=== PATIENT | female | born 1965 | race Caucasian/White ===

== ENCOUNTER 2016-09-19 14:35 | Inpatient (IN) | payer OTHER ==
[2016-09-19] MEDS ORDERED: ONDANSETRON 4 MG/2 ML VIAL ONE (14:57)
[2016-09-19 15:09] LABS: % IMMATURE GRANULYOCYTES 0.4 % (0.0-1.1); ABSOLUTE IMMATURE GRANULOCYTES 0.05 10^3/uL (0.00-0.10); ADD DIFF? NO; ADD MORPH? NO; ADD SCAN? NO; ATYPICAL LYMPHOCYTE FLAG 10 (0-99); FRAGMENT RBC FLAG 0 (0-99); HEMATOCRIT 43.6 % (38.0-47.0); HEMOGLOBIN 15.1 g/dL (12.6-16.3); LEFT SHIFT FLG 0 (0-99); LIPEMIA HEMOLYSIS FLAG 90 (0-99); MEAN CELL HEMOGLOBIN 33.3 pg (27.9-34.1); MEAN CELL HEMOGLOBIN CONCENTR. 34.6 g/dL (32.4-36.7); MEAN PLATELET VOLUME 9.8 fL (8.7-11.7); PLATELET CLUMPS FLAG 10 (0-99); PLATELET COUNT 248 10^3/uL (150-400); RED BLOOD CELL COUNT 4.54 10^6/uL (4.18-5.33)
[2016-09-19] MEDS ORDERED: NS 1,000 ML IV ONE (15:11)
[2016-09-19] MEDS ORDERED: ONDANSETRON 4 MG/2 ML VIAL IVP ONE (15:11)
[2016-09-19 15:15] LABS: ALANINE AMINOTRANSFERASE 36 IU/L (9-52); ALBUMIN 4.5 g/dL (3.5-5.0); ALKALINE PHOSPHATASE 46 IU/L (38-126); ANION GAP 11 mEq/L (8-16); ASPARTATE AMINOTRANSFERASE 33 IU/L (14-46); BILIRUBIN,TOTAL 1.5 mg/dL (0.1-1.4); BILIRUBIN-CONJUGATED 0.3 mg/dL (0.0-0.5); BILIRUBIN-UNCONJUGATED 1.2 mg/dL (0.0-1.1); CALCIUM 9.2 mg/dL (8.5-10.4); CARBON DIOXIDE 24 mEq/l (22-31); CHLORIDE 103 mEq/L (97-110); CREATININE 0.6 mg/dL (0.6-1.0); GLOMERULAR FILTRATION RATE > 60; GLUCOSE 85 mg/dL (70-100); POTASSIUM 4.2 mEq/L (3.5-5.2); SODIUM 138 mEq/L (134-144); TOTAL PROTEIN 7.7 g/dL (6.3-8.2)
[2016-09-19] MEDS ORDERED: IOPAMIDOL (ISOVUE-300) 100 ML BTL IV ONE (15:27)
[2016-09-19] MEDS ORDERED: ERTAPENEM 1 GM in NS 100 ML IV ONE (16:09)
[2016-09-19] MEDS ORDERED: ONDANSETRON 4 MG/2 ML VIAL IVP PRN (17:23)
--- NOTE | 2016-09-19 17:51 | EDPHY ---
H & P Smoking Status: Never smoked Time Seen by Provider: 09/19/16 14:46 HPI/ROS: CHIEF COMPLAINT: Abdominal pain HISTORY OF PRESENT ILLNESS: 51-year-old female presents to the emergency department complaining of diffuse abdominal pain that began at 8:00 p.m. last night. She states that she has had intermittent pain over the last few days and then had more abrupt onset of severe pain at 8:00 p.m. last night. She has felt nauseous although no vomiting. No diarrhea. She thought that she was constipated and she tried Pepcid and MiraLax without relief. Denies chest pain or difficulty breathing. No diarrhea. No fevers or chills. No chest pain or difficulty breathing. No back pain. REVIEW OF SYSTEMS: Constitutional: No fever, no chills. Eyes: No double or blurry vision. ENT: No sore throat. Respiratory: No cough, no shortness of breath. Cardiac: No chest pain. Gastrointestinal: Abdominal pain. No vomiting or diarrhea. Genitourinary: No dysuria. Musculoskeletal: No neck or back pain. Skin: No rashes. Neurological: No headache. (Homa Bowie M) Past Medical/Surgical History: Negative (Homa Bowie M) Social History: (Homa Bowie M) Physical Exam: General Appearance: Alert, no distress. Afebrile and in no apparent distress. Eyes: Pupils equal and round. Extraocular motions are all intact. ENT: Mouth: Mucous membranes moist. Respiratory: No wheezing, rhonchi, or rales, lungs are clear to auscultation. Cardiovascular: Regular rate and rhythm. Gastrointestinal: Abdomen is soft. Diffusely tender to palpate especially in the left and right lower quadrant. There is no rebound, guarding or masses noted. No CVA tenderness bilaterally. Neurological: Alert and oriented x 3, cranial nerves II through XII grossly intact Skin: Warm and dry, no rashes. Musculoskeletal: Nontender to palpate along the cervical, thoracic or lumbar spine. Neck is supple. Extremities: Full range of motion and no peripheral edema. Psychiatric: Patient is oriented X 3, there is no agitation. (Azeb,Homa M) Constitutional: Initial Vital Signs Temperature (C) 36.9 C 09/19/16 14:43 Heart Rate 74 09/19/16 14:43 Respiratory Rate 14 09/19/16 14:43 Blood Pressure 137/88 H 09/19/16 14:43 O2 Sat (%) 94 09/19/16 14:43 O2 Delivery Mode Room Air Allergies/Adverse Reactions: codeine [Codeine] Allergy (Verified 10/25/12 09:49) Rash latex Allergy (Verified 10/25/12 09:49) INTERNAL REACTION DENTAL DAMS ECT. Sulfa (Sulfonamide Antibiotics) Allergy (Verified 10/25/12 09:45) Rash nicki Allergy (Uncoded 09/19/16 14:43) Medical Decision Making - Diagnostics Imaging: CT imaging of the abdomen and pelvis reveal sigmoid colitis with localized perforation. There is small amount of free fluid in the pelvis and upper abdomen. This is reported to me by Dr. Mcmullen at 4:07 p.m.. (Homa Bowie) ED Course/Re-evaluation: 51-year-old female presents to the emergency department with abdominal pain. Laboratory studies reveal elevated white blood cell count of over 13,000. CT imaging of the abdomen and pelvis reveal sigmoid colitis with localized perforation with small amount of free fluid in the pelvis in the upper abdomen. This is reported to me by Dr. Mcmullen. Patient was started on Invanz 1 g IV. The patient will be admitted to Dr. Hayden Foreman to evaluate the patient in the emergency department. He did not think hospitalist consultation was necessary. The case was discussed with Dr. Balwinder Holm, secondary supervising physician, who did not directly evaluate the patient but agrees with treatment and plan. ( Homa Bowie) I did not see this patient while she was in the emergency department. However her care was discussed with the PA while the patient was in the department. I agree with treatment plan and management (Balwinder Holm) Differential Diagnosis: Including but not limited to diverticulitis, acute appendicitis, perforation, bowel obstruction, sepsis, urinary tract infection, pyelonephritis (Homa Bowie) - Data Points Laboratory Results: Laboratory Results 09/19/16 14:50 09/19/16 14:50 09/19/16 09/19/16 14:50 14:50 WBC 13.12 10^3/uL H 10^3/uL (3.80-9.50) RBC 4.54 10^6/uL 10^6/uL (4.18-5.33) Hgb 15.1 g/dL g/dL (12.6-16.3) Hct 43.6 % % (38.0-47.0) MCV 96.0 fL fL (81.5-99.8) MCH 33.3 pg pg (27.9-34.1) MCHC 34.6 g/dL g/dL (32.4-36.7) RDW 12.0 % % (11.5-15.2) Plt Count 248 10^3/uL 10^3/uL (150-400) MPV 9.8 fL fL (8.7-11.7) Neut % (Auto) 82.5 % H % (39.3-74.2) Lymph % (Auto) 11.1 % L % (15.0-45.0) Jennings % (Auto) 5.2 % % (4.5-13.0) Eos % (Auto) 0.5 % L % (0.6-7.6) Baso % (Auto) 0.3 % % (0.3-1.7) Nucleat RBC Rel Count 0.0 % % (0.0-0.2) Absolute Neuts (auto) 10.83 10^3/uL H 10^3/uL (1.70-6.50) Absolute Lymphs (auto) 1.45 10^3/uL 10^3/uL (1.00-3.00) Absolute Monos (auto) 0.68 10^3/uL 10^3/uL (0.30-0.80) Absolute Eos (auto) 0.07 10^3/uL 10^3/uL (0.03-0.40) Absolute Basos (auto) 0.04 10^3/uL 10^3/uL (0.02-0.10) Absolute Nucleated RBC 0.00 10^3/uL 10^3/uL (0-0.01) Immature Gran % 0.4 % % (0.0-1.1) Immature Gran # 0.05 10^3/uL 10^3/uL (0.00-0.10) Sodium 138 mEq/L mEq/L (134-144) Potassium 4.2 mEq/L mEq/L (3.5-5.2) Chloride 103 mEq/L mEq/L (97-110) Carbon Dioxide 24 mEq/l mEq/l (22-31) Anion Gap 11 mEq/L mEq/L (8-16) BUN 9 mg/dL mg/dL (7-23) Creatinine 0.6 mg/dL mg/dL (0.6-1.0) Estimated GFR > 60 Glucose 85 mg/dL mg/dL (70-100) Calcium 9.2 mg/dL mg/dL (8.5-10.4) Total Bilirubin 1.5 mg/dL H mg/dL (0.1-1.4) Conjugated Bilirubin 0.3 mg/dL mg/dL (0.0-0.5) Unconjugated Bilirubin 1.2 mg/dL H mg/dL (0.0-1.1) AST 33 IU/L IU/L (14-46) ALT 36 IU/L IU/L (9-52) Alkaline Phosphatase 46 IU/L IU/L (38-126) Total Protein 7.7 g/dL g/dL (6.3-8.2) Albumin 4.5 g/dL g/dL (3.5-5.0) Lipase 42.0 IU/L IU/L (23-300) Medications Given: Discontinued Medications Sodium Chloride (Ns) 1,000 mls @ 0 mls/hr IV ONCE ONE PRN Reason: Wide Open Stop: 09/19/16 15:12 Last Admin: 09/19/16 15:17 Dose: 1,000 mls Ertapenem 1 gm/ Sodium (Chloride) 100 mls @ 200 mls/hr IV EDNOW ONE PRN Reason: Protocol Stop: 09/19/16 16:38 Last Admin: 09/19/16 16:31 Dose: 100 mls Morphine Sulfate (Morphine) 6 mg IVP EDNOW ONE Stop: 09/19/16 15:12 Last Admin: 09/19/16 15:16 Dose: 6 mg Ondansetron HCl (Zofran) 4 mg IVP EDNOW ONE Stop: 09/19/16 15:12 Last Admin: 09/19/16 15:17 Dose: 4 mg Departure - Departure Disposition: [facility] Acute Clinical Impression: Sigmoid colitis with perforation Abdominal pain Qualifiers: Abdominal location: generalized Qualified Code(s): R10.84 - Generalized abdominal pain Condition: Fair
--- NOTE | 2016-09-19 18:05 | GDS ---
CHIEF COMPLAINT: Left lower quadrant pain. HISTORY OF PRESENT ILLNESS: Previously healthy 51-year-old female who has had several weeks of left lower quadrant pain. She was treating this with Advil, Pepcid, and probiotics. It became worse la st night. She has had some chills and fever. She managed to ski 2 days ago so the pain that is sev ere is fairly new. She also has had nausea today. Last bowel movement was yesterday. She has been passing some gas. She denies any recent antibiotic treatment. ALLERGIES: Latex, sulfa, nickel, and codeine. MEDICATIONS: No current medications. SOCIAL HISTORY: Drinks wine daily. Does not smoke cigarettes. 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 . PAST SURGICAL HISTORY: Inguinal hernia. REVIEW OF SYSTEMS: Negative. At 1 point, there was question of pulmonary hypertension but a heart catheterization several years ago was completely normal. PHYSICAL EXAMINATION: HEENT: No scleral icterus. Pharynx clear. NECK: Supple without adenopathy . LUNGS: Clear. HEART: Normal S1 and S2 without murmur. ABDOMEN: Soft, tympanitic in the right lower quadrant consistent with a gas filled cecum seen on CT scan. Mildly tender throughout and mo re tender in the left lower quadrant. There is no mass. EXTREMITIES: Grossly unremarkable. NEURO LOGIC: Grossly unremarkable. LABORATORY: Remarkable for white blood count elevated at 13. Platelets are normal as is hematocrit . MCV is normal. Chemistries are entirely normal other than a bilirubin of 1.5. A CT scan was obtained by the emergency room showing thickening of the sigmoid colon; several divert icula, although it is not impressive diverticulosis; as well as a collection of free air and some ot her air bubbles in the retroperitoneum. There was scant free fluid. ASSESSMENT: Sigmoid colitis with some free air. There is obviously a microperforation of the colon . I would expect the patient to be more ill in terms of tachycardia, fever, etc., if she had a larg er perforation. The colitis seen is extensive, and while the radiologist comments on the fact there were only 2 diverticula seen, I think that patient can certainly have significant diverticulitis fr om even 1 perforated diverticulum. The radiologist raised the question of ulcerative colitis or [employer] hn's, and if the patient's clinical condition does not improve in several days, I would obtain a GI consultation. She certainly cannot be prepped for colonoscopy at the present time, and I do not thi nk there is any reason to engage the GI service at the present time. In summary, I think the patient has microperforation of the sigmoid colon, most likely from divertic ulitis. C difficile colitis seems unlikely in the absence of diarrhea and lack of preoperative anti biotics. The patient was started on ertapenem, and it is reasonable to continue this as mono drug c overage. Should her clinical condition worsen, she understands she might need reimaging or even an operation. Hopefully, she will improve with IV antibiotics and bowel rest. She is currently compla ining of headache and would like p.o. Advil, which is okay. She understands that this is likely goi ng to be a 5-7 day hospital stay and if she does require surgery, it will be longer. /[id number]/MODL
[2016-09-19] MEDS ORDERED: FAMOTIDINE 20 MG TAB PO PRN (20:35)
[2016-09-19] MEDS ORDERED: FLUTICASONE NASAL 120 SPRAYS/16 GM MDI EACHNARE PRN (20:35)
[2016-09-19] MEDS ORDERED: PROGESTERONE 200 MG PO SCH (21:00)
[2016-09-19] MEDS ORDERED: PROGESTERONE MICRONIZED 200 MG PO SCH (21:00)
[2016-09-19] MEDS: PROGESTERONE 200 MG PO SCH (21:27)
[2016-09-20] MEDS: LR 1,000 ML IV SCH (04:20)
[2016-09-20 05:28] LABS: HEMATOCRIT 35.5 % (38.0-47.0); HEMOGLOBIN 12.2 g/dL (12.6-16.3); MEAN CELL HEMOGLOBIN 33.2 pg (27.9-34.1); MEAN CELL HEMOGLOBIN CONCENTR. 34.4 g/dL (32.4-36.7); MEAN CELL VOLUME 96.7 fL (81.5-99.8); RED BLOOD CELL COUNT 3.67 10^6/uL (4.18-5.33); RED CELL DISTRIBUTION WIDTH 12.1 % (11.5-15.2)
--- NOTE | 2016-09-20 06:48 | SOAPPROG ---
SOAP Progress Note Assessment/Plan: Assessment: Plan: Subjective: hd 2 abd soft. feels about the same. passing some flaus afebrile wbc up to 16 access; no worsening- coont antiiotics, watch for improvement. if doesn.t improve, re image in several days. Objective: Vital Signs Temp Pulse Resp BP Pulse Ox 37.2 C 78 16 94/49 L 94 09/20/16 03:15 09/20/16 03:15 09/20/16 03:15 09/20/16 03:15 09/20/16 03:15 Laboratory Results 09/20/16 04:49 09/19/16 09/20/16 09/21/16 05:59 05:59 05:59 Intake Total 2240 Balance 2240 ICD10 Worksheet Patient Problems: Problems Problem Status Onset Abdominal pain Acute
[2016-09-20] MEDS: ERTAPENEM 1 GM in NS 100 ML IV SCH (09:07)
[2016-09-20] MEDS: ESTRADIOL TP SCH (09:07)
[2016-09-20] MEDS: IBUPROFEN 200 MG TAB PO PRN (16:55)
[2016-09-20] MEDS: PROGESTERONE 200 MG PO SCH (20:38)
[2016-09-21] MEDS: IBUPROFEN 200 MG TAB PO PRN ×3 (03:59→16:31)
[2016-09-21] MEDS: LR 1,000 ML IV SCH ×2 (04:00→09:49)
[2016-09-21 06:03] LABS: HEMOGLOBIN 11.9 g/dL (12.6-16.3); MEAN CELL HEMOGLOBIN 33.4 pg (27.9-34.1); MEAN CELL VOLUME 98.3 fL (81.5-99.8); RED BLOOD CELL COUNT 3.56 10^6/uL (4.18-5.33); RED CELL DISTRIBUTION WIDTH 11.9 % (11.5-15.2)
[2016-09-21] MEDS: ERTAPENEM 1 GM in NS 100 ML IV SCH (08:29)
--- NOTE | 2016-09-21 09:59 | SOAPPROG ---
SOAP Progress Note Assessment/Plan: Assessment: Plan: Subjective: vss, af, wbc dropping abd soft less pain. start clear liq diet Objective: Vital Signs Temp Pulse Resp BP Pulse Ox 36.6 C 65 14 115/73 98 09/21/16 08:13 09/21/16 08:13 09/21/16 08:13 09/21/16 08:13 09/21/16 08:13 Laboratory Results 09/21/16 05:43 09/20/16 09/21/16 09/22/16 05:59 05:59 05:59 Intake Total 2240 0 Balance 2240 0 ICD10 Worksheet Patient Problems: Problems Problem Status Onset Abdominal pain Acute
[2016-09-21] MEDS ORDERED: LR 1,000 ML IV SCH (10:30)
[2016-09-21] MEDS: ESTRADIOL TP SCH (19:29)
[2016-09-21] MEDS: PROGESTERONE 200 MG PO SCH (20:19)
[2016-09-22] MEDS: IBUPROFEN 200 MG TAB PO PRN ×3 (01:34→20:53)
[2016-09-22 05:48] LABS: HEMATOCRIT 32.7 % (38.0-47.0); HEMOGLOBIN 11.4 g/dL (12.6-16.3); MEAN CELL HEMOGLOBIN 33.9 pg (27.9-34.1); MEAN CELL HEMOGLOBIN CONCENTR. 34.9 g/dL (32.4-36.7); MEAN CELL VOLUME 97.3 fL (81.5-99.8); RED BLOOD CELL COUNT 3.36 10^6/uL (4.18-5.33); RED CELL DISTRIBUTION WIDTH 11.8 % (11.5-15.2)
[2016-09-22] MEDS: ERTAPENEM 1 GM in NS 100 ML IV SCH (07:42)
--- NOTE | 2016-09-22 07:43 | SOAPPROG ---
SOAP Progress Note Assessment/Plan: Assessment: Plan: Subjective: vss, af wbc nml abd softer, not pain free yet. cont presnt care, possilby change to po antibioitcs tommorrow, Objective: Vital Signs Temp Pulse Resp BP Pulse Ox 36.9 C 66 16 111/67 95 09/21/16 23:21 09/21/16 23:21 09/21/16 23:21 09/21/16 23:21 09/21/16 23:21 Laboratory Results 09/22/16 05:12 09/21/16 09/22/16 09/23/16 05:59 05:59 05:59 Intake Total 0 750 Balance 0 750 ICD10 Worksheet Patient Problems: Problems Problem Status Onset Abdominal pain Acute
[2016-09-22] MEDS: ESTRADIOL TP SCH (09:04)
[2016-09-22] MEDS: valACYclovir 500 MG TAB PO SCH ×2 (11:12→20:53)
[2016-09-22] MEDS: PREPARATION H 51 GM CRTUBE PR SCH ×2 (12:27→20:53)
[2016-09-22] MEDS: DOCOSANOL 2 GM CREAM TP SCH ×3 (12:27→20:54)
--- NOTE | 2016-09-22 13:55 | GCON ---
GI CONSULTATION. DATE OF CONSULTATION: 09/22/2016 REASON FOR CONSULTATION: Left colon inflammation. HISTORY OF PRESENT ILLNESS: The patient is a 51-year-old female who was seen by me in 2011 for a sc reening colonoscopy, which was normal. She is now admitted with a several-day history of progressiv laure more severe left lower quadrant abdominal pain associated with fever and chills with an elevated white count and CT findings consistent with left colon inflammation, diverticulosis, and microperfo ration consistent with diverticulitis. I was asked to see the patient today by Dr. Foreman for fu rther evaluation of these symptoms and findings. The patient was on no medications prior to admissi on. ALLERGIES: She is allergic to sulfa, nickel, codeine, and latex. PAST MEDICAL HISTORY: Otherwise unremarkable. PAST SURGICAL HISTORY: Significant for inguinal hernia repair. SOCIAL HISTORY: She does drink a glass a wine daily. Does not smoke tobacco. She is single. She lives in [place]. 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 REVIEW OF SYSTEMS: Negative for 10 systems other than diarrhea 3 days prior to admission, followed by crampy to dull left lower quadrant abdominal pain, fever, and chills. PHYSICAL EXAMINATION: VITAL SIGNS: Temperature 36.8, pulse 59 and regular, blood pressure 111/71, respiratory rate 16, O2 saturation 94% on room air. GENERAL: A well-developed, well-nourished fema le, lying in bed, in no apparent distress. HEENT: Head atraumatic, normocephalic. Pupils equal, r ound, reactive to light. EOMs intact. Sclerae nonicteric. Nares patent. Mucous membranes moist. Dentition good. NECK: Supple. Trachea midline. No palpable cervical adenopathy. LUNGS: Clear to percussion and auscultation. CARDIOVASCULAR: Regular rhythm and rate. Normal S1, S2, without m urmur. Peripheral pulses strong bilaterally. No pedal edema. ABDOMEN: Supple, positive bowel sandie nds. No liver edge or spleen tip palpable. There is tenderness in the left lower quadrant to deep palpation without palpable mass or rebound. EXTREMITIES: Without deformity. NEURO: Patient was a lert and oriented x3. There were no focal neurologic deficits. LABS: White count on admission 13.12; white count now is 7.22 after 72 hours of ertapenem. Hemoglo bin 11.4, hematocrit 32.7. MCV and MCHC normal. Platelets 174,000. Electrolytes normal. Total bi lirubin 1.5, unconjugated 1.2, conjugated 0.3, AST 33, ALT 36, ALP 46, albumin 4.5, lipase 42. Abdo sanjeev CT scan on admission on 09/19/2016 showed diffusely severe thickening of the sigmoid colon wit h edema along the exterior and multiple gas bubbles along the lateral side of the sigmoid colon, whi ch are extraluminal with edema in the area. There were several diverticula noted. There was a mild amount of free fluid in the pelvis. IMPRESSION: 1. Left lower quadrant abdominal pain, leukocytosis, fever and chills, and CT scan of the abdomen f indings consistent with acute diverticulitis, albeit could also be acute infectious colitis. Less l ikely would be Crohn disease or ulcerative colitis. 2. Elevated unconjugated bilirubin with normal conjugated bilirubin, normal AST, ALT, and ALP consi stent with Gilbert syndrome. RECOMMENDATIONS: 1. Continue with IV antibiotics, so would recommend switching to oral Augmentin at 750 mg p.o. b.i. d. for 10 days and discharge the patient to home when tolerating a full diet tomorrow. 2. I will arrange for followup colonoscopy in 3 months' time to assess for any residual inflammator y changes to suggest inflammatory bowel disease. /[id number]/MODL
[2016-09-22 20:48] VITALS: O2SAT 96
[2016-09-22] MEDS: PROGESTERONE 200 MG PO SCH (20:53)
[2016-09-23] MEDS: DOCOSANOL 2 GM CREAM TP SCH ×3 (05:36→11:22)
[2016-09-23 06:19] LABS: HEMATOCRIT 33.3 % (38.0-47.0); HEMOGLOBIN 11.6 g/dL (12.6-16.3); MEAN CELL HEMOGLOBIN 33.7 pg (27.9-34.1); MEAN CELL HEMOGLOBIN CONCENTR. 34.8 g/dL (32.4-36.7); MEAN CELL VOLUME 96.8 fL (81.5-99.8); RED BLOOD CELL COUNT 3.44 10^6/uL (4.18-5.33); RED CELL DISTRIBUTION WIDTH 11.5 % (11.5-15.2)
[2016-09-23 07:47] VITALS: BP 116/73; PULSE 56; RESP 16; TEMP 98.2
[2016-09-23] MEDS: PREPARATION H 51 GM CRTUBE PR SCH (08:00)
--- NOTE | 2016-09-23 08:02 | GDS ---
PRESENT ILLNESS: Patient was admitted with perforated diverticulitis, free air and thickening of th e sigmoid. There were only 2 diverticula seen, but the picture was most consistent with diverticuli tis. She was also seen during the admission by Gastroenterology who is arranging an outpatient colo noscopy 3 months after discharge. HOSPITAL COURSE: Patient was treated with IV ertapenem, and at the time of discharge, has normal wh ite count, afebrile and much less pain, tolerating a diet and passing stools. FINAL DIAGNOSIS: Perforated sigmoid diverticulitis. DISPOSITION: At home on Augmentin 875 twice daily for 7 more days. She is getting ertapenem today on discharge. Follow up with Dr. Foreman in a week. /[id number]/MODL
[2016-09-23] MEDS: ERTAPENEM 1 GM in NS 100 ML IV SCH (08:14)
[2016-09-23] MEDS: ESTRADIOL TP SCH (08:21)
[2016-09-23] MEDS: valACYclovir 500 MG TAB PO SCH (11:19)
== END 2016-09-23 11:59 | disposition home or self-care (01) | DRG 392 ==
LOC: OBSVTOIN 16:21 → F3E 17:28
PROVIDERS: ADMIT Surgery; ATTEND Surgery
DX: K57.20 Diverticulitis of large intestine with perforation and abscess without bleeding (principal)
CPT/HCPCS: 96374; J1335; J2405; Q9967

== ENCOUNTER → 2018-12-17 | Outpatient (CLI) | payer OTHER ==
[~2018-12-17] MED LIST: IOPAMIDOL (ISOVUE-300) 100 ML BTL ONE
== END ==
LOC: FIMAGING 16:29
PROVIDERS: ATTEND Family Medicine
DX: K59.00 Constipation, unspecified (principal)
CPT/HCPCS: Q9967